=== PATIENT | male | born 1985 ===

== ENCOUNTER 2017-11-13 09:39 | Emergency (ER) | payer BC ==
[2017-11-13 09:55] VITALS: O2SAT 100
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
[2017-11-13 12:25] VITALS: BP 148/91; PULSE 70; RESP 18; TEMP 98.7
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
== END 2017-11-13 13:43 | disposition home or self-care (01) ==
LOC: C.ER 09:39
DX: S20.212A Contusion of left front wall of thorax, initial encounter (principal); T14.8XXA Other injury of unspecified body region, initial encounter; S83.90XA Sprain of unspecified site of unspecified knee, initial encounter; Y04.0XXA Assault by unarmed brawl or fight, initial encounter